=== PATIENT | female | born 1995 | race Caucasian/White ===

== ENCOUNTER 2017-12-25 11:33 | Inpatient (IN) ==
[2017-12-25] MEDS ORDERED: Ringers Solution, Lactated 1,000 ML IVC ONE (15:55)
[2017-12-25 16:28] LABS: Basophils % 0.2 %; Eosinophils % 0.4 %; Hematocrit 33.1 % (35.3-44.9); Hemoglobin 11.4 g/dL (11.5-15.4); Immature Granulocytes % 0.4 % (0-4); Lymphocytes # 2.3 K/mcL (0.6-4.6); Mean Corpuscular HGB Conc 34.4 g/dL (31.6-35.5); Mean Corpuscular Hemoglobin 27.7 pg (28.0-33.3); Mean Corpuscular Volume 80.3 fL (83.0-100.0); Mean Platelet Volume 9.5 fL (9.4-12.4); Monocytes # 0.5 K/mcL (0.0-1.3); Neutrophils # 6.8 K/mcL (1.6-8.9); Platelet Count 205 K/mcL (140-400); Red Blood Count 4.12 M/mcL (3.82-4.97); Red Cell Distribution Width 13.6 % (11.5-14.5)
[2017-12-25 16:58] LABS: BUN/Creatinine Ratio 11 (6-26); Blood Urea Nitrogen 6 mg/dL (6-20); Calcium 9.1 mg/dL (8.6-10.3); Carbon Dioxide 23 mEq/L (23-29); Chloride 107 mEq/L (98-107); Glucose 81 mg/dL (70-105); Osmolality,Calculated 281 (280-300); Potassium 3.7 mEq/L (3.5-5.1); Sodium 137 mEq/L (136-145); eGFR For Non-African Americans > 60 (> 60)
[2017-12-25] MEDS: D5% in Lactated Ringers 1,000 ML IVC SCH (17:31)
[2017-12-25] MEDS: Ondansetron 4 MG/2 ML VIAL IVP PRN (19:39)
--- NOTE | 2017-12-25 20:06 | OB/GYN History & Physical ---
Date of Encounter: 12/25/17 Time of Encounter: 20:03 Assessment and Plan (1) Hyperemesis gravidarum Current visit: Yes Status: Acute Patient with nausea and vomiting dehydration 7 pound weight loss with syncopal episodes. She is required multiple hospitalizations and having very difficult time working. She is failed oral on transdermal as well as sublingual antiemetics. We will admit for IV hydration and check electrolytes. We will consult home health for potential Zofran or Reglan pump. We will advance diet as tolerated (2) 18 weeks gestation of Current visit: Yes Status: Acute History of Present Illness Chief complaint: Nausea and vomiting dehydration at 18 weeks 4 days gestation HPI: Ms. Muñoz is a 22 year old female 2 para 0 female at 18 weeks 4 days gestation seen in office today with severe nausea and vomiting and weakness. She is very worried and tearful because she feels so bad and states she is just miserable was not able to keep any solids or liquids down several days. She is also worried because she works at [employer] on the [employer] and is having difficulty with overheating where the temperatures often get 100 degrees and she cannot take a break without the line coming to a halt. 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 She has been tried on Diclegis components, Reglan, Phenergan, Zofran, and scopolamine patches. She tried bland diet clear liquids all without avail. She denies right upper quadrant pain fevers or chills. Past Med Surg Social Fam HX - Past Medical History Source: patient, old records reviewed Medical history: no medical history Psychiatric history: no psych history - Past Surgical History Surgical History: non-contributory, other Additional surgical history: ear surgery - Social History Smoking Status: Never smoker Smokeless Tobacco Status: No Alcohol use: none Drug use: none - Family History Mother Living Status: Still Living Medications and Allergies Doxylamine Succinate [Unisom] 25 mg PO DAILY PRN #10 tablet 10/30/17 [Rx] Famotidine [Pepcid] 20 mg PO BID PRN #20 tablet 10/30/17 [Rx] Nitrofurantoin (BID) [Macrobid] 100 mg PO BID #14 capsule 10/30/17 [Rx] Pyridoxine (B-6) [Vitamin B-6] 50 mg PO DAILY PRN #10 tablet 10/30/17 [Rx] Cephalexin [Keflex] 500 mg PO BID #14 capsule 12/09/17 [Rx] Promethazine [Phenergan] 12.5 mg RC Q6HR PRN #12 supp.rect 12/18/17 [Rx] 3 Allergy/AdvReac Type Severity Reaction Status Date / Time diphenhydramine Allergy Swelling Verified 12/09/17 13:48 [From Benadryl] of Lip/Tongue/Throat Exam - Vital Signs Vital signs: Initial Vital Signs Temp Pulse Resp BP Pulse Ox 98.1 F 70 20 123/69 98 12/25/17 12:04 12/25/17 12:04 12/25/17 12:04 12/25/17 12:04 12/25/17 12:04 - Constitutional Constitutional: well developed, mild distress, dusky - HEENT HEENT: Pallor, Mucus Membranes Dry - Neck Neck exam: full ROM - Lungs Respiratory exam: CTAB - Cardiovascular Cardiovascular exam: RRR - Abdomen Abdomen: Present: gravid - Extremities Extremities exam: full ROM Deep Tendon Reflex Grade: 2+ Normal Results Result Diagrams: 12/25/17 16:16 12/25/17 16:16 Abnormal lab results Hgb 11.4 g/dL (11.5-15.4) L 12/25/17 16:16 Hct 33.1 % (35.3-44.9) L 12/25/17 16:16 MCV 80.3 fL (83.0-100.0) L 12/25/17 16:16 MCH 27.7 pg (28.0-33.3) L 12/25/17 16:16 Creatinine 0.53 mg/dL (0.60-1.20) L 12/25/17 16:16 All other labs normal.
[2017-12-26] MEDS: D5% in Lactated Ringers 1,000 ML IVC SCH ×2 (00:13→06:51)
[2017-12-26] MEDS: Ondansetron 4 MG/2 ML VIAL IVP PRN (01:34)
[2017-12-26] MEDS: *HR* Promethazine 25 MG/ML VIAL IVP PRN ×2 (06:57→22:34)
[2017-12-26] MEDS: PYRIDOXINE IVPB SCH ×2 (10:06→14:10)
[2017-12-26] MEDS: [UNRECOGNIZED DRUG - OTHER] IVPB SCH ×2 (10:06→14:10)
[2017-12-26] MEDS: THIAMINE IVPB SCH ×2 (10:06→14:10)
[2017-12-26] MEDS: FOLIC ACID IVPB SCH ×2 (10:06→14:10)
--- NOTE | 2017-12-26 10:55 | OB/GYN Progress Note ---
Date of Encounter: 12/26/17 Time of Encounter: 10:53 - Assessment and Plan (1) 18 weeks gestation of Current Visit: Yes Status: Acute (2) Hyperemesis gravidarum Current Visit: Yes Status: Acute Scopalamine patch ordered Awaiting labs to be drawn Continue meds as ordered Anticipate discharge home tomorrow. Subjective - Subjective Principal diagnosis: hyperemesis during Interval history: Pt reports mild improvement in symptoms. Requesting scopalamine patch and states she gets the most relief from reglan and scopalamine. States it will be another 24-48 hours until her insurance approves zofran pump. Antepartum ROS: movement normal, no new complaints, no loss of fluid, no vaginal bleeding, no contractions Objective - Vital Signs Vital Signs: Vital Signs Temp Pulse Resp BP Pulse Ox 12/26/17 01:35 98.2 F 62 16 107/75 100 12/25/17 21:00 98.9 F 76 16 108/69 97 12/25/17 17:52 98.4 F 67 18 98/62 96 12/25/17 13:52 98.4 F 65 18 100/62 96 12/25/17 12:04 98.1 F 70 20 123/69 98 Intake and Output 12/25/17 12/26/17 12/26/17 23:59 07:59 15:59 Intake Total 1135 / 1135 1999 Output Total 315 / 315 250 / 250 Balance 820 / 820 1750 / 1750 Intake: IV Fluids 1000 / 1000 1999 / 1999 D5% & Lact. Ringers 1000 Ml Bag 1999 1,000 ML @ 150 mls/hr IVC . Q6H40M BORIS Rx#:[id number] Lactated Ringers 1,000 ML @ 999 1000 / 1000 mls/hr IVC .Q1H1M ONE Rx#: [id number] Oral 135 / 135 Output: Urine 300 / 300 250 / 250 Emesis Other: Meal Dinner Weight 106.458 kg Patient Weight 12/26/17 23:59 Weight 106.458 kg - Exam FHR: auscultation normal Auscultation: bilateral: normal Abdomen: Present: normal appearance, soft, gravid Uterus: Present: normal, firm - Labs Labs: Abnormal lab results Hgb 11.4 g/dL (11.5-15.4) L 12/25/17 16:16 Hct 33.1 % (35.3-44.9) L 12/25/17 16:16 MCV 80.3 fL (83.0-100.0) L 12/25/17 16:16 MCH 27.7 pg (28.0-33.3) L 12/25/17 16:16 Creatinine 0.53 mg/dL (0.60-1.20) L 12/25/17 16:16
[2017-12-26] MEDS ORDERED: Scopolamine Patch 1.5 MG PATCH.TD72 TD SCH (11:00)
[2017-12-26 12:15] LABS: BUN/Creatinine Ratio 7 (6-26); Blood Urea Nitrogen 4 mg/dL (6-20); Calcium 8.9 mg/dL (8.6-10.3); Carbon Dioxide 24 mEq/L (23-29); Chloride 108 mEq/L (98-107); Glucose 80 mg/dL (70-105); Osmolality,Calculated 282 (280-300); Potassium 3.7 mEq/L (3.5-5.1); Sodium 138 mEq/L (136-145); eGFR For Non-African Americans > 60 (> 60)
[2017-12-26 14:23] LABS: Bilirubin,Urine Negative (Negative); Blood,Urine Negative (Negative); Clarity,Urine Cloudy (Clear); Color,Urine Yellow (Yellow); Glucose,Urine (UA) Normal (Normal); Ketones,Urine Negative (Negative); Leukocyte Esterase,Urine Negative (Negative); Nitrite,Urine Negative (Negative); Protein,Urine Negative (Neg-Trace); Specific Gravity,Urine 1.021 (1.010-1.025); Urobilinogen,Urine Normal (Normal)
[2017-12-26 14:27] LABS: Bacteria,Urine None Seen per hpf (None-Few); Hyaline Casts,Urine None Seen per lpf (None-Few); RBC,Urine 0-3 per hpf (0-3); Squamous Epithelial Cell,Urine Moderate per lpf (None-Few); WBC,Urine 0-3 per hpf (0-3)
[2017-12-26] MEDS: D5% in 0.45% NACL w KCl 20 MEQ/1,000 ML MLS IVC SCH (20:48)
[2017-12-27] MEDS: D5% in 0.45% NACL w KCl 20 MEQ/1,000 ML MLS IVC SCH (03:34)
--- NOTE | 2017-12-27 08:51 | Discharge Summary ---
Date of Encounter: 12/27/17 Time of Encounter: 08:55 - Discharge Diagnosis (1) Hyperemesis gravidarum Priority: Primary Status: Acute Comments: Pt improving but still with decreased PO intake. Reglan before meals with breakthrough phenergan seems to be helping. Encouraged pt in watching diet and increasing Pyridoxine to TID. Home SQ pump being arranged and they have been in contact with [facility]. (2) 18 weeks gestation of Priority: Primary Status: Acute Comments: + FHT's - Discharge Medications Prescriptions: Promethazine [Phenergan] 25 mg RC Q6HR PRN #40 supp.rect PRN Reason: nausea and emesis Home Medications: Doxylamine Succinate [Unisom] 25 mg PO DAILY PRN #10 tablet 10/30/17 [Rx] Famotidine [Pepcid] 20 mg PO BID PRN #20 tablet 10/30/17 [Rx] Nitrofurantoin (BID) [Macrobid] 100 mg PO BID #14 capsule 10/30/17 [Rx] Pyridoxine (B-6) [Vitamin B-6] 50 mg PO DAILY PRN #10 tablet 10/30/17 [Rx] Cephalexin [Keflex] 500 mg PO BID #14 capsule 12/09/17 [Rx] Promethazine [Phenergan] 12.5 mg RC Q6HR PRN #12 supp.rect 12/18/17 [Rx] Promethazine [Phenergan] 25 mg RC Q6HR PRN #40 supp.rect 12/27/17 [Rx] Allergies/Adverse Reactions: 3 Allergy/AdvReac Type Severity Reaction Status Date / Time diphenhydramine Allergy Swelling Verified 12/09/17 13:48 [From Benadryl] of Lip/Tongue/Throat Data Procedures and tests throughout hospitalization: Laboratory Tests 12/25/17 12/25/17 12/26/17 16:16 16:16 11:12 WBC 9.8 RBC 4.12 Hgb 11.4 L Hct 33.1 L MCV 80.3 L MCH 27.7 L MCHC 34.4 RDW 13.6 Plt Count 205 MPV 9.5 Immature Gran % 0.4 Seg Neutrophils % 70.0 Lymphocytes % 24.0 Monocytes % 5.0 Eosinophils % 0.4 Basophils % 0.2 Neutrophils # 6.8 Lymphocytes # 2.3 Monocytes # 0.5 Eosinophils # 0.0 Basophils # 0.0 Sodium 137 138 Potassium 3.7 3.7 Chloride 107 108 H Carbon Dioxide 23 24 BUN 6 4 L Creatinine 0.53 L 0.60 Est GFR ( Amer) > 60 > 60 Est GFR (Non-Af Amer) > 60 > 60 BUN/Creatinine Ratio 11 7 Glucose 81 80 Calculated Osmolality 281 282 Calcium 9.1 8.9 Beta-Hydroxybutyric Acd Urine Color Urine Clarity Urine pH Ur Specific [place] Urine Protein Urine Glucose (UA) Urine Ketones Urine Blood Urine Nitrite Urine Bilirubin Urine Urobilinogen Ur Leukocyte Esterase Urine Microscopic RBC Urine Microscopic WBC Ur Squamous Epith Cells Urine Bacteria Hyaline Casts Ur Culture Indicated? 12/26/17 12/26/17 11:12 11:20 WBC RBC Hgb Hct MCV MCH MCHC RDW Plt Count MPV Immature Gran % Seg Neutrophils % Lymphocytes % Monocytes % Eosinophils % Basophils % Neutrophils # Lymphocytes # Monocytes # Eosinophils # Basophils # Sodium Potassium Chloride Carbon Dioxide BUN Creatinine Est GFR ( Amer) Est GFR (Non-Af Amer) BUN/Creatinine Ratio Glucose Calculated Osmolality Calcium Beta-Hydroxybutyric Acd 0.29 H Urine Color Yellow Urine Clarity Cloudy A Urine pH 8.0 Ur Specific [place] 1.021 Urine Protein Negative Urine Glucose (UA) Normal Urine Ketones Negative Urine Blood Negative Urine Nitrite Negative Urine Bilirubin Negative Urine Urobilinogen Normal Ur Leukocyte Esterase Negative Urine Microscopic RBC 0-3 Urine Microscopic WBC 0-3 Ur Squamous Epith Cells Moderate H Urine Bacteria None Seen Hyaline Casts None Seen Ur Culture Indicated? NO Labs on day of discharge: Labs from last 24 hours 12/26/17 12/26/17 12/26/17 11:20 11:12 11:12 Sodium 138 Potassium 3.7 Chloride 108 H Carbon Dioxide 24 BUN 4 L Creatinine 0.60 Est GFR ( Amer) > 60 Est GFR (Non-Af Amer) > 60 BUN/Creatinine Ratio 7 Glucose 80 Calculated Osmolality 282 Calcium 8.9 Beta-Hydroxybutyric Acd 0.29 H Urine Color Yellow Urine Clarity Cloudy A Urine pH 8.0 Ur Specific [place] 1.021 Urine Protein Negative Urine Glucose (UA) Normal Urine Ketones Negative Urine Blood Negative Urine Nitrite Negative Urine Bilirubin Negative Urine Urobilinogen Normal Ur Leukocyte Esterase Negative Urine Microscopic RBC 0-3 Urine Microscopic WBC 0-3 Ur Squamous Epith Cells Moderate H Urine Bacteria None Seen Hyaline Casts None Seen Ur Culture Indicated? NO - Impressions Pt states she feels better, taking more po intake. Ambulating. Date of admission: 12/26/17 09:00 Primary care physician: PCP NONE - Patient Status Disposition: Home, Self-Care Condition: Good Functional capacity at discharge: independent ambulation Overall status at discharge: patient is progressing back to baseline - Discharge Instructions Follow Up With: Denver Lindsey MD [Partnered Physician] - Additional Instructions: Should not return to work at this time secondary to severe n/v related to with weight loss, weakness and syncope. It is not self for her to work at this time. - Diet and Activity Activity: increase activity as tolerated Diet: advance to your usual diet Hospital Course INSURANCE SALES PROFESSIONAL Time Attestation: Total time spent providing and/or coordinating discharge services: Exam - Constitutional Vitals: Temp Pulse Resp BP Pulse Ox 98.4 F 64 20 99/53 96 12/27/17 03:35 12/27/17 03:35 12/27/17 03:35 12/27/17 03:35 12/27/17 03:35 General appearance IM: A&O X 3 - Respiratory Respiratory exam: Present: CTAB - Cardiovascular Cardiovascular exam IM: Present: RRR - GI/Abdominal GI/Abdominal exam IM: normal bowel sounds, no peritoneal signs - Extremities Exam Extremities exam IM: Present: full ROM - Neurological Exam Neurological exam: oriented X3 - VTE Reasons for not Prescribing Prophylaxis: Treatment not Indicated - Low risk for VTE
[2017-12-27 09:08] VITALS: BP 119/78
== END 2017-12-27 09:15 | disposition home or self-care (01) | DRG 781 ==
LOC: 1NENUOBS
PROVIDERS: ADMIT Obstetrics & Gynecology; ATTEND Obstetrics & Gynecology

== ENCOUNTER 2018-01-04 11:04 | Observation (INO) ==
--- NOTE | 2018-01-04 11:27 | Emergency Department Note ---
Disposition Clinical Impression: Dehydration Intractable nausea and vomiting Qualifiers: Vomiting type: unspecified Qualified Code(s): R11.2 - Nausea with vomiting, unspecified Disposition: Admitted As Inpatient Condition: Fair Time of Disposition: 13:30 Nausea/Vomiting/Diarrhea HPI - General Chief complaint: ED Nausea/Vomiting/Diarrhea Stated complaint: "vomiting/dehydrated,20wks preg" Time Seen by Provider: 01/04/18 11:19 Source: patient Mode of arrival: ambulatory Limitations: no limitations Nursing Notes Reviewed: Yes Vital Signs Reviewed: Yes - History of Present Illness HPI Narrative: Patient is a 22-year-old female with no past medical history, . Approximately 20 weeks . She presents today due to nausea and vomiting. She states that she has had nausea and vomiting since around 8 weeks of . She follows with [facility] DIRECT[facility] here at [place] for care. She says that over the past several weeks, she has tried Zofran, Phenergan, Reglan, scopolamine patch. She even had Zofran pump prescribed to her that she has tried within the past 24 hours. She states that after 12 hours, the pump malfunction. However, she denied having any relief while the pump was running with continuous Zofran infusion. Denies any abdominal pain or contractions, denies any vaginal bleeding or discharge, dysuria, hematuria. She has had some mild low back pain that started after vomiting. Denies any current issues with such as hypertension, diabetes, eclampsia, preeclampsia. - Related Data Home Medications Medication Instructions Recorded Confirmed Metoclopramide [Reglan] 10 mg PO Q6HR 01/04/18 01/04/18 Allergies Allergy/AdvReac Type Severity Reaction Status Date / Time diphenhydramine Allergy Swelling Verified 12/09/17 13:48 [From Benadryl] of Lip/Tongue/Throat All systems ED: reviewed and negative except as stated. Constitutional: Denies: fever Cardiovascular: Denies: chest pain Respiratory: Denies: cough, dyspnea, wheezes Gastrointestinal: Reports: nausea, vomiting. Denies: abdominal pain, diarrhea, constipation, hematemesis, melena, hematochezia Genitourinary: Denies: urgency, dysuria, frequency, hematuria, discharge, abnormal menses Neurological: Denies: headache, weakness, numbness Past Medical History - Past Medical History Attestation: Yes The following information was validated with the patient. Source: patient Medical history: Reports: no medical history Surgical history: Reports: non-contributory, other Psychiatric history: Reports: no psych history [facility]PORATE ACCOUNT DIRECTOR history: Reports: spontaneous - Social History Smoking Status: Never smoker Smokeless Tobacco Status: No Alcohol use: Reports: none Drug use: Reports: none Physical Exam - General Limitations: no limitations General appearance: alert, in no apparent distress - Head Head exam: atraumatic, normocephalic, normal inspection - Eye Eye exam: Present: normal appearance, PERRL, EOMI - ENT ENT exam: normal oropharynx, mucous membranes dry - Neck Neck exam: Present: normal inspection, full ROM, trachea midline - Chest Chest inspection: Present: normal inspection, symmetric chest wall rise - Respiratory Respiratory exam: Present: normal lung sounds bilaterally - Cardiovascular Cardiovascular exam: Present: regular rate, normal rhythm, normal heart sounds - Abdominal Exam Abdominal exam: Present: soft, Non-Tender, other (Gravid). Absent: tenderness, distention, guarding, rebound, rigidity - Extremities Exam Extremities exam: Present: normal inspection, full ROM. Absent: tenderness, pedal edema - Neurological Exam Neurological exam: Present: alert, oriented X3 - Psychiatric Psychiatric exam: Present: normal affect, normal mood - Skin Skin exam: Present: warm, dry, intact, normal color Course Course Narrative: Patient is clinically dehydrated. Dry mucous membranes, lips are dry and cracked. Heart and lung exam within normal limits. Abdomen gravid, soft, nontender. We will obtain heart tones, give the patient normal saline bolus, Reglan, perform basic labs. If nausea and vomiting is unable to be controlled here in the department, we will admit for further care. 13:28 labs showed no increase in creatinine. However, urinalysis shows ketones , high specific gravity. No signs of UTI. Patient is given normal saline and Reglan. No improvement in her nausea and vomiting. I spoke with OB, aircraft mechanic armament Stacie. She has accepted the patient for dehydration and intractable nausea and vomiting. Vital Signs Temperature 98.3 F 01/04/18 11:14 Pulse Rate 85 01/04/18 11:14 Respiratory Rate 16 01/04/18 11:14 Blood Pressure 110/75 01/04/18 11:14 O2 Sat by Pulse Oximetry 97 01/04/18 11:14 Temperature 98.3 F 01/04/18 11:27 Pulse Rate 74 01/04/18 12:40 Respiratory Rate 16 01/04/18 12:40 Blood Pressure 113/56 01/04/18 12:40 O2 Sat by Pulse Oximetry 97 01/04/18 12:40 Oxygen Delivery Oxygen Delivery Room Air Nausea/Vomiting/Diarrhea - [facility] Narrative Medical decision making narrative: Patient is clinically dehydrated. Dry mucous membranes, lips are dry and cracked. Heart and lung exam within normal limits. Abdomen gravid, soft, nontender. We will obtain heart tones, give the patient normal saline bolus, Reglan, perform basic labs. If nausea and vomiting is unable to be controlled here in the department, we will admit for further care. 13:28 labs showed no increase in creatinine. However, urinalysis shows ketones , high specific gravity. No signs of UTI. Patient is given normal saline and Reglan. No improvement in her nausea and vomiting. I spoke with OB, aircraft mechanic armament Stacie. She has accepted the patient for dehydration and intractable nausea and vomiting. - Medical Records Medical records reviewed: Yes I reviewed the patient's medical records. - Lab Data Lab results reviewed: Yes I reviewed the patient's lab results. Result diagrams: 01/04/18 11:54 01/04/18 11:54 Lab Results 01/04/18 01/04/18 01/04/18 Range/Units 11:54 11:54 12:03 WBC 10.1 (4.3-11.1) K/mcL RBC 4.41 (3.82-4.97) M/mcL Hgb 12.4 (11.5-15.4) g/dL Hct 36.4 (35.3-44.9) % MCV 82.5 L (83.0-100.0) fL MCH 28.1 (28.0-33.3) pg MCHC 34.1 (31.6-35.5) g/dL RDW 13.6 (11.5-14.5) % Plt Count 217 (140-400) K/mcL MPV 10.6 (9.4-12.4) fL Immature Gran % 0.5 (0-4) % Seg Neutrophils % 74.5 % Lymphocytes % 19.9 % Monocytes % 4.4 % Eosinophils % 0.4 % Basophils % 0.3 % Neutrophils # 7.5 (1.6-8.9) K/mcL Lymphocytes # 2.0 (0.6-4.6) K/mcL Monocytes # 0.4 (0.0-1.3) K/mcL Eosinophils # 0.0 (0.0-0.6) K/mcL Basophils # 0.0 (0.0-0.2) K/mcL Sodium 137 (136-145) mEq/L Potassium 4.3 (3.5-5.1) mEq/L Chloride 106 (98-107) mEq/L Carbon Dioxide 22 L (23-29) mEq/L BUN 7 (6-20) mg/dL Creatinine 0.69 (0.60-1.20) mg/dL Est GFR ( Amer) > 60 (> 60) Est GFR (Non-Af Amer) > 60 (> 60) BUN/Creatinine Ratio 10 (6-26) Glucose 84 (70-105) mg/dL Calculated Osmolality 281 (280-300) Calcium 9.4 (8.6-10.3) mg/dL Urine Color Dark Yellow (Yellow) Urine Clarity Cloudy A (Clear) Urine pH 5.5 (5.0-8.0) pH Units Ur Specific [place] > 1.030 H (1.010-1.025) Urine Protein Trace (Neg-Trace) mg/dL Urine Glucose (UA) Normal (Normal) mg/dL Urine Ketones 15 H (Negative) mg/dL Urine Blood Negative (Negative) Urine Nitrite Negative (Negative) Urine Bilirubin Negative (Negative) Urine Urobilinogen Normal (Normal) mg/dL Ur Leukocyte Esterase Small H (Negative) Urine Microscopic RBC 3-5 H (0-3) per hpf Urine Microscopic WBC 15-30 H (0-3) per hpf Ur Squamous Epith Cells Moderate H (None-Few) per lpf Urine Bacteria Few (None-Few) per hpf Hyaline Casts None Seen (None-Few) per lpf Ur Culture Indicated? YES A (NO) S.B.A.R. - S.B.A.R. Situation: Demographics, MOA Background: Presenting Complaint, Relevant PMH, Meds, & Allergies Assessment: Vital Signs, Course and respsone to treatment, Exam Concerns, Patient/Family Expectation, Pertinant Lab Results Recommendation: Barrier(s) to disposition, Recommendation based on pending studies, treatments, or consults SCristyB.A.R. Report Given to: Route Vending Machine Servicer Dr. Cassandra Luis Attestation Statement - Attestation Attestation: This documentation is done with the assistance of Dragon dictation. Despite efforts made to ensure accuracy, there may be inaccuracies in naval aircrewman operator or spelling and typographical errors. I examined this patient and my medical decision-making was reviewed with the Resident Physician. I agree with the documented findings, disposition and treatment plan as described except to the extent set forth below. Patient was seen and evaluated by Dr. Woo and myself, I agree with his evaluation and treatment plan, I supervised the care the patient's stay. Patient presents today with nausea and vomiting she has had chronic hyperemesis due to . She is on multiple medications and they do not seem to work really well. They are 1 admit her to the hospital through [facility]POR[facility] ACCOUNT DIRECTOR but she was can try a ondansetron pump first and that did not work. Now she presents she does look dry here. Will order labs hydration and anti-emetics do an ultrasound at bedside to make sure with good heart tones and and movement with the child and speak with HEALTHCARE CORPORATE ACCOUNT DIRECTOR for probable admission. She is in agreement with this plan. 1343 hrs.: Patient is doing better. We spoke with HEALTHCARE CORPORATE ACCOUNT DIRECTOR they are in agreement and admit her. Impressions hyperemesis gravidarum. 20 weeks . Patient 's agreement with this plan. We did bedside also showed heart tones 160s.
[2018-01-04] MEDS ORDERED: 0.9 % Sodium Chloride 1,000 ML IVC ONE (11:45)
[2018-01-04] MEDS ORDERED: Metoclopramide 10 MG/2 ML VIAL IVP ONE (11:45)
[2018-01-04 12:25] LABS: Hematocrit 36.4 % (35.3-44.9); Hemoglobin 12.4 g/dL (11.5-15.4); Mean Corpuscular HGB Conc 34.1 g/dL (31.6-35.5); Mean Corpuscular Hemoglobin 28.1 pg (28.0-33.3); Mean Corpuscular Volume 82.5 fL (83.0-100.0); Platelet Count 217 K/mcL (140-400); Red Blood Count 4.41 M/mcL (3.82-4.97); Red Cell Distribution Width 13.6 % (11.5-14.5)
[2018-01-04 12:26] LABS: Basophils % 0.3 %; Eosinophils % 0.4 %; Immature Granulocytes % 0.5 % (0-4); Lymphocytes % 19.9 %; Mean Platelet Volume 10.6 fL (9.4-12.4); Monocytes # 0.4 K/mcL (0.0-1.3); Monocytes % 4.4 %; Neutrophils # 7.5 K/mcL (1.6-8.9); Segmented Neutrophils % 74.5 %
[2018-01-04 12:31] LABS: Bilirubin,Urine Negative (Negative); Blood,Urine Negative (Negative); Clarity,Urine Cloudy (Clear); Color,Urine Dark Yellow (Yellow); Glucose,Urine (UA) Normal (Normal); Ketones,Urine 15 mg/dL (Negative); Leukocyte Esterase,Urine Small (Negative); Nitrite,Urine Negative (Negative); PH,Urine 5.5 pH Units (5.0-8.0); Protein,Urine Trace mg/dL (Neg-Trace); Specific Gravity,Urine > 1.030 (1.010-1.025); Urobilinogen,Urine Normal (Normal)
[2018-01-04 12:33] LABS: Bacteria,Urine Few per hpf (None-Few); Hyaline Casts,Urine None Seen per lpf (None-Few); Squamous Epithelial Cell,Urine Moderate per lpf (None-Few); WBC,Urine 15-30 per hpf (0-3)
[2018-01-04 12:59] LABS: BUN/Creatinine Ratio 10 (6-26); Blood Urea Nitrogen 7 mg/dL (6-20); Calcium 9.4 mg/dL (8.6-10.3); Carbon Dioxide 22 mEq/L (23-29); Chloride 106 mEq/L (98-107); Glucose 84 mg/dL (70-105); Osmolality,Calculated 281 (280-300); Potassium 4.3 mEq/L (3.5-5.1); Sodium 137 mEq/L (136-145); eGFR For Non-African Americans > 60 (> 60)
[2018-01-04] MEDS ORDERED: *HR* Promethazine 25 MG/ML VIAL IVP PRN (13:57)
[2018-01-04] MEDS ORDERED: 1: Ringers Solution, Lactated 1,000 ML with Promethazine 50 MG 2: Ringers Solution, Lac IV SCH (14:00)
[2018-01-04] MEDS ORDERED: Ringers Solution, Lactated 1,000 ML ONE (14:09)
[2018-01-04] MEDS ORDERED: Scopolamine Patch 1.5 MG PATCH.TD72 TD SCH (14:15)
[2018-01-04] MEDS: Metoclopramide 10 MG/2 ML VIAL IVP SCH ×2 (14:28→20:44)
--- NOTE | 2018-01-04 14:31 | OB/GYN History & Physical ---
Date of Encounter: 01/04/18 Time of Encounter: 14:27 Assessment and Plan (1) Dehydration Current visit: Yes Status: Acute Rehydrate with IV fluids MVI, Phenergan, B-6 IV infusions Phenergan, Zofran, Reglan, Zantac, and scopolamine patch NPO until at least morning, will reevaluate at that time FHTs daily H.Pylori Testing (2) 20 weeks gestation of Current visit: Yes Status: Acute (3) Nausea and vomiting during prior to 22 weeks gestation Current visit: Yes Status: Acute History of Present Illness Chief complaint: Nausea and vomiting during HPI: Ms. Muñoz is a 22 year old at 20 weeks and 0 days that presented to the ED with c/o increased nausea and vomiting for greater than 24 hours. She states her zofran pump stopped working Thursday afternoon and she had been attempting to fix it with the help desk at the company that provided it to her without relief. She states she was also told to stop all oral antiemetics which she believes made her nausea worse. She states she has not been able to keep anything down for greater than 24 hours. She is seen for this by Dr Lindsey and has had no problems with this prior to hyperemesis. I admitted her to observation this afternoon for rehydration and nausea/vomiting control. Past Med Surg Social Fam HX - Past Medical History Medical history: no medical history Psychiatric history: no psych history - Past Surgical History Surgical History: non-contributory, other Additional surgical history: ear surgery - Social History Smoking Status: Never smoker Smokeless Tobacco Status: No Alcohol use: none Drug use: none - Family History Mother Living Status: Still Living Obstetrical History - Pregnancies : 1 Para: 0 Term: 0 : 0 Ab's: 0 Livin Medications and Allergies Metoclopramide [Reglan] 10 mg PO Q6HR 01/04/18 [History] 3 Allergy/AdvReac Type Severity Reaction Status Date / Time diphenhydramine Allergy Swelling Verified 12/09/17 13:48 [From Benadryl] of Lip/Tongue/Throat Review of System OB All systems PM: reviewed and no additional remarkable complaints except as stated Exam - Vital Signs Vital signs: Initial Vital Signs Temp Pulse Resp BP Pulse Ox 98.3 F 85 16 110/75 97 01/04/18 11:14 08/13/18 11:14 01/04/18 11:14 01/04/18 11:14 01/04/18 11:14 - Constitutional Constitutional: well developed, well nourished, no acute distress, obese - HEENT HEENT: Normocephaly, Mucus Membranes Dry - Neck Neck exam: full ROM - Lungs Respiratory exam: CTAB - Cardiovascular Cardiovascular exam: RRR, +S1, +S2 - Abdomen Abdomen: Present: bowel sounds normal, gravid, non tender - Extremities Extremities exam: normal capillary refill, normal inspection, radial pulses palpable and symmetrical Deep Tendon Reflex Grade: 2+ Normal - Uterus Uterus exam: Present: normal size, normal contour. Absent: tender Results Result Diagrams: 01/04/18 11:54 01/04/18 11:54 Abnormal lab results MCV 82.5 fL (83.0-100.0) L 01/04/18 11:54 Carbon Dioxide 22 mEq/L (23-29) L 01/04/18 11:54 Urine Clarity Cloudy (Clear) A 01/04/18 12:03 Ur Specific [place] > 1.030 (1.010-1.025) H 01/04/18 12:03 Urine Ketones 15 mg/dL (Negative) H 01/04/18 12:03 Ur Leukocyte Esterase Small (Negative) H 01/04/18 12:03 Urine Microscopic RBC 3-5 per hpf (0-3) H 01/04/18 12:03 Urine Microscopic WBC 15-30 per hpf (0-3) H 01/04/18 12:03 Ur Squamous Epith Cells Moderate per lpf (None-Few) H 01/04/18 12:03 Ur Culture Indicated? YES (NO) A 01/04/18 12:03 All other labs normal. - VTE Reasons for not Prescribing Prophylaxis: Treatment not Indicated - Low risk for VTE
[2018-01-04] MEDS ORDERED: Promethazine 50 MG in Ringers Solution, Lactated 1,000 ML IV SCH (16:00)
[2018-01-04] MEDS: Famotidine 20 MG/2 ML VIAL IVP SCH (18:07)
[2018-01-04] MEDS: Ondansetron 4 MG/2 ML VIAL IVP SCH (18:07)
[2018-01-05] MEDS ORDERED: Pyridoxine (B-6) 50 MG in Ringers Solution, Lactated 1,000 ML IVPB SCH
[2018-01-05] MEDS: Ondansetron 4 MG/2 ML VIAL IVP SCH ×4 (00:28→18:22)
[2018-01-05] MEDS: Metoclopramide 10 MG/2 ML VIAL IVP SCH ×3 (02:57→14:58)
[2018-01-05] MEDS: Famotidine 20 MG/2 ML VIAL IVP SCH ×2 (06:01→18:23)
[2018-01-05] MEDS ORDERED: MVI, adult with vitamin K 10 ML in Ringers Solution, Lactated 1,000 ML IV SCH (08:00)
[2018-01-05 08:45] VITALS: BP 112/77
[2018-01-05] MEDS ORDERED: Hydrocortisone Sodium Succ 100 MG/2 ML VIAL IVP SCH ×2 (10:00→18:00)
--- NOTE | 2018-01-05 19:00 | Discharge Summary ---
Date of Encounter: 01/05/18 Time of Encounter: 19:00 - Discharge Diagnosis (1) 20 weeks gestation of Priority: Primary Status: Acute Comments: + GFM, no vb or lof (2) Hyperemesis gravidarum Priority: Secondary Status: Acute Comments: Pt is doing a little bit better today. Zofran pump should be available tomorrow and worked again on prior auth of Scopolamine patches. Pt taking a little more food, will d/c home. - Discharge Medications Home Medications: Metoclopramide [Reglan] 10 mg PO Q6HR 01/04/18 [History] Allergies/Adverse Reactions: 3 Allergy/AdvReac Type Severity Reaction Status Date / Time diphenhydramine Allergy Swelling Verified 12/09/17 13:48 [From Benadryl] of Lip/Tongue/Throat Data - Impressions Doing a little better throughout today, now taking a little more dry foods. Still alot of nausea, less emesis. Date of admission: 01/04/18 13:30 Primary care physician: Niranjan Trinidad MD - Patient Status Disposition: Home, Self-Care Condition: Fair Functional capacity at discharge: independent ambulation Overall status at discharge: patient is progressing back to baseline - Discharge Instructions Follow Up With: Denver Lindsey MD [Partnered Physician] - - Diet and Activity Activity: increase activity as tolerated Diet: advance to your usual diet Hospital Course RIBB[employer] BLOCKER Time Attestation: Total time spent providing and/or coordinating discharge services: Exam - Constitutional Vitals: Temp Pulse Resp BP Pulse Ox 98.5 F 70 16 112/77 99 01/05/18 08:45 01/05/18 08:45 01/05/18 09:18 01/05/18 08:45 01/05/18 08:45 General appearance IM: A&O X 3 - Respiratory Respiratory exam: Present: CTAB - Cardiovascular Cardiovascular exam IM: Present: RRR - GI/Abdominal GI/Abdominal exam IM: normal bowel sounds - Uterus Position: 2 Fingers Above Umbilicus - Extremities Exam Extremities exam IM: Present: full ROM - VTE Reasons for not Prescribing Prophylaxis: Treatment not Indicated - Low risk for VTE
== END 2018-01-05 19:33 | disposition home or self-care (01) ==
LOC: 1NENUOBS 11:04 → EMEROOARM 11:04 → 1NENUOBS 14:02
PROVIDERS: ADMIT Advanced Practice Midwife; ATTEND Advanced Practice Midwife

== ENCOUNTER → 2018-02-25 17:02 | Observation (INO) ==
[2018-02-25 11:28] LABS: Basophils % 0.3 %; Eosinophils # 0.2 K/mcL (0.0-0.6); Eosinophils % 1.1 %; Hematocrit 33.2 % (35.3-44.9); Hemoglobin 10.9 g/dL (11.5-15.4); Lymphocytes % 14.4 %; Mean Corpuscular HGB Conc 32.8 g/dL (31.6-35.5); Mean Corpuscular Volume 82.2 fL (83.0-100.0); Mean Platelet Volume 9.7 fL (9.4-12.4); Monocytes # 0.6 K/mcL (0.0-1.3); Monocytes % 4.1 %; Neutrophils # 11.2 K/mcL (1.6-8.9); Platelet Count 251 K/mcL (140-400); Red Blood Count 4.04 M/mcL (3.82-4.97); Segmented Neutrophils % 79.1 %; White Blood Count 14.2 K/mcL (4.3-11.1)
[2018-02-25 11:33] LABS: Bilirubin,Urine Negative (Negative); Blood,Urine Negative (Negative); Color,Urine Yellow (Yellow); Glucose,Urine (UA) Normal (Normal); Ketones,Urine Negative (Negative); Leukocyte Esterase,Urine Negative (Negative); Nitrite,Urine Negative (Negative); PH,Urine 7.5 pH Units (5.0-8.0); Protein,Urine Negative (Neg-Trace); Specific Gravity,Urine < 1.005 (1.010-1.025); Urobilinogen,Urine Normal (Normal)
[2018-02-25 11:35] LABS: Bacteria,Urine None Seen per hpf (None-Few); Hyaline Casts,Urine None Seen per lpf (None-Few); RBC,Urine 0-3 per hpf (0-3); Squamous Epithelial Cell,Urine Moderate per lpf (None-Few)
[2018-02-25 11:43] LABS: Clarity,Urine Clear (Clear)
[2018-02-25 11:56] LABS: Amphetamine Screen,Urine Negative ng/mL (Cutoff=1000); Barbiturate Screen,Urine Negative ng/mL (Cutoff=200); Benzodiazepines Screen,Urine Negative ng/mL (Cutoff=200); Cannabinoid Screen,Urine Negative ng/mL (Cutoff = 50); Cocaine Screen,Urine Negative ng/mL (Cutoff= 300); Opiate Screen,Urine Negative ng/mL (Cutoff=300); Phencyclidine Screen,Urine Negative ng/mL (Cutoff=25)
[2018-02-25 11:59] LABS: Alanine Aminotransferase 13 Units/L (7-52); Aspartate Amino Transferase 22 Units/L (13-39); BUN/Creatinine Ratio 12 (6-26); Blood Urea Nitrogen 6 mg/dL (6-20); Lactate Dehydrogenase 159 Units/L (140-271); Uric Acid 4.6 mg/dL (2.3-7.6); eGFR For African Americans > 60 (> 60); eGFR For Non-African Americans > 60 (> 60)
[~2018-02-25 17:02] MED LIST: Bisacodyl 10 MG RECTAL SUPPOSITORY RC STA; Ringers Solution, Lactated 1,000 ML IVC ONE
== END | disposition home or self-care (01) ==
LOC: 1NENULAB
PROVIDERS: ADMIT Registered Nurse; ATTEND Registered Nurse

== ENCOUNTER → 2018-03-09 02:49 | Observation (INO) ==
[2018-03-09 02:11] LABS: Bilirubin,Urine Negative (Negative); Blood,Urine Negative (Negative); Clarity,Urine Clear (Clear); Color,Urine Yellow (Yellow); Glucose,Urine (UA) Normal (Normal); Ketones,Urine Negative (Negative); Leukocyte Esterase,Urine Trace (Negative); Nitrite,Urine Negative (Negative); PH,Urine 6.5 pH Units (5.0-8.0); Protein,Urine Negative (Neg-Trace); Specific Gravity,Urine 1.014 (1.010-1.025); Urobilinogen,Urine Normal (Normal)
[2018-03-09 02:13] LABS: Bacteria,Urine None Seen per hpf (None-Few); Hyaline Casts,Urine None Seen per lpf (None-Few); RBC,Urine 0-3 per hpf (0-3); Squamous Epithelial Cell,Urine Moderate per lpf (None-Few); WBC,Urine 0-3 per hpf (0-3)
[2018-03-09 02:46] LABS: Amphetamine Screen,Urine Negative ng/mL (Cutoff=1000); Barbiturate Screen,Urine Negative ng/mL (Cutoff=200); Benzodiazepines Screen,Urine Negative ng/mL (Cutoff=200); Cannabinoid Screen,Urine Negative ng/mL (Cutoff = 50); Cocaine Screen,Urine Negative ng/mL (Cutoff= 300); Opiate Screen,Urine Negative ng/mL (Cutoff=300); Phencyclidine Screen,Urine Negative ng/mL (Cutoff=25)
--- NOTE | 2018-03-09 02:46 | OB/GYN Progress Note ---
Date of Encounter: 03/09/18 Time of Encounter: 02:44 - Assessment and Plan (1) 29 weeks gestation of Current Visit: Yes Status: Acute tracing - appropriate for gestation Urinalysis - likely UTI; first dose Macrobid given in house, Rx given for remainder of Rx Discharge home with PTL precautions and when to seek care Follow up in office with routine care and PRN (2) Urinary tract infection affecting care of mother in third trimester, antepartum Current Visit: Yes Status: Acute Subjective - Subjective Principal diagnosis: UTI in Interval history: Ms Muñoz is a at 29 weeks gestation that presents to triage with c/o vaginal irritation and increased urinary frequency. She states she has been urinating multiple times throughout the day with suprapubic pressure. She states excellent movement. She denies headache, vision changes, epigastric pain, leaking of fluid and vaginal bleeding/discharge/cramping. She has had HG with this , but has had good control with a zofran pump. Antepartum ROS: movement normal Objective - Vital Signs Vital Signs: Intake and Output 03/08/18 03/08/18 03/09/18 15:59 23:59 07:59 Other: Weight 112.9 kg Patient Weight 03/09/18 23:59 Weight 112.9 kg - Exam FHR: auscultation normal, category 1 (Baseline 140 - appropriate for gestation) Abdomen: Present: normal appearance, soft, gravid Uterus: Present: normal. Absent: firm, tenderness - Labs Labs: Abnormal lab results Ur Leukocyte Esterase Trace (Negative) H 03/09/18 01:45 Ur Squamous Epith Cells Moderate per lpf (None-Few) H 03/09/18 01:45 Ur Culture Indicated? YES (NO) A 03/09/18 01:45
[~2018-03-09 02:49] MED LIST changes: -Bisacodyl 10 MG RECTAL SUPPOSITORY RC STA; +Nitrofurantoin (BID) 100 MG CAPSULE PO ONE; -Ringers Solution, Lactated 1,000 ML IVC ONE
== END | disposition home or self-care (01) ==
LOC: 1NENULAB
PROVIDERS: ADMIT Advanced Practice Midwife; ATTEND Advanced Practice Midwife

== ENCOUNTER 2018-05-14 08:38 | Inpatient (IN) ==
[2018-05-14] MEDS ORDERED: Naloxone 0.4 MG/ML INJ IVP PRN (09:34)
[2018-05-14] MEDS ORDERED: Famotidine 20 MG/2 ML VIAL IVP PRN (09:34)
[2018-05-14] MEDS ORDERED: *HR* Nalbuphine 10 MG/ML AMPUL IVP PRN (09:34)
--- NOTE | 2018-05-14 09:43 | OB/GYN History & Physical ---
Date of Encounter: 05/14/18 Time of Encounter: 09:37 Assessment and Plan (1) 38 weeks gestation of Current visit: Yes Status: Acute admitted for delivery (2) Spontaneous rupture of membranes Current visit: Yes Status: Acute admitted for delivery History of Present Illness Chief complaint: SROM HPI: Ms. Muñoz is a 22 year old female at 38w4d presents to labor and delivery with complaints of SROM. Patient reports after using the bathroom this morning she got back in bed she had a large gush of fluid. Patient reports feeling good movement. Patient denies any vaginal itching, burning or odor. Patient denies any dysuria. Patient does report frequency. Patient denies any Vaginal bleeding or regular contractions. Patient was 3/70% in the office today. On admission she was 4/90 per RN with Negative nitrazine however, perineum was very wet. Speculum exam per SILVERIO Ponce had + Pooling and + FERN test. Patient to be admitted for delivery. Blood type: B+ Rubella: Immune Hep B: Nonreactive GBS: Negative Past Med Surg Social Fam HX - Past Medical History Source: patient Medical history: no medical history Psychiatric history: no psych history - Past Surgical History Surgical History: other Additional surgical history: ear surgery. t&a - Social History Smoking Status: Never smoker Smokeless Tobacco Status: No Alcohol use: none Drug use: none - Family History Mother History Unknown: Yes Adopted: No Family Member Ethnicity: Non- Living Status: Still Living Hx Family Cardiac Disorders: Yes (HTN) Hx Family Respiratory Disorders: Yes (COPD) Hx Family Cancer: No Hx Family GI Disorders: No Hx Family Endocrine Disorder: Yes (DM) Hx Family Neuromuscular Disorders: No Hx Family Neurologic Disorders: No Hx Family HEENT Disorders: No Hx Family Autoimmune Disorders: No Hx Family Medical Disorders: Yes (DVT) Obstetrical History - Pregnancies : 2 Para: 0 Term: 0 : 0 Ab's: 1 Livin Medications and Allergies Metoclopramide [Reglan] 10 mg PO Q6HR 01/04/18 [History] Ranitidine HCl [Zantac 75] 150 mg PO DAILY 02/25/18 [History] Pnv95/Ferrous Fumarate/FA [ Vitamin Tablet] 1 tab PO DAILY 05/01/18 [History] Zofran 12/08/18 [History] Allergy/AdvReac Type Severity Reaction Status Date / Time cefpodoxime [From Vantin] Allergy See Verified 05/01/18 14:09 Comments Cefprozil [From Cefzil] Allergy See Verified 05/01/18 14:09 Comments diphenhydramine Allergy Swelling Verified 12/09/17 13:48 [From Benadryl] of Lip/Tongue/Throat Review of System OB - Constitutional Constitutional ROS IM: no chills, no fever(s), no headache(s) - Cardiovascular Cardiovascular: no chest pain, no edema, no lightheadedness, no palpitations, no pedal edema - Respiratory Respiratory: no dyspnea - Gastrointestinal Gastrointestinal: no abdominal pain, no cramping, no diarrhea, no heartburn, no nausea, no vomiting Exam - Constitutional Constitutional: well developed, well nourished, no acute distress, obese - HEENT HEENT: Normocephaly, Mucus Membranes Moist - Neck Neck exam: full ROM, normal inspection, supple - Lungs Respiratory exam: CTAB - Cardiovascular Cardiovascular exam: RRR, +S1, +S2 - Abdomen Abdomen: Present: bowel sounds normal, gravid, non tender - Extremities Extremities exam: full ROM, normal capillary refill, normal inspection Deep Tendon Reflex Grade: 2+ Normal - Cervix Dilation: 4 (per RN) Effacement: 90 - Uterus Uterus exam: Present: normal size, normal contour - Anus/Rectum Anus/Rectum: Present: normal perianal skin - Comments Comments: FHR 135 bpm moderate variability +15x15 accels no decels noted. Cat. 1 tracing. No contractions noted speculum exam: +pooling, +FERN, large amount of green mucus discharge noted. vaginosis panel collected Results All other labs normal. - VTE Reasons for not Prescribing Prophylaxis: Treatment not Indicated - Low risk for VTE
[2018-05-14 09:45] LABS: Amphetamine Screen,Urine Negative ng/mL (Cutoff=1000); Barbiturate Screen,Urine Negative ng/mL (Cutoff=200); Benzodiazepines Screen,Urine Negative ng/mL (Cutoff=200); Cannabinoid Screen,Urine Negative ng/mL (Cutoff = 50); Cocaine Screen,Urine Negative ng/mL (Cutoff= 300); Opiate Screen,Urine Negative ng/mL (Cutoff=300); Phencyclidine Screen,Urine Negative ng/mL (Cutoff=25)
[2018-05-14 09:51] LABS: Basophils # 0.1 K/mcL (0.0-0.2); Basophils % 0.5 %; Eosinophils # 0.4 K/mcL (0.0-0.6); Eosinophils % 2.9 %; Hematocrit 35.5 % (35.3-44.9); Hemoglobin 11.9 g/dL (11.5-15.4); Immature Granulocytes % 1.3 % (0-4); Lymphocytes # 2.8 K/mcL (0.6-4.6); Mean Corpuscular HGB Conc 33.5 g/dL (31.6-35.5); Mean Corpuscular Hemoglobin 26.7 pg (28.0-33.3); Mean Corpuscular Volume 79.6 fL (83.0-100.0); Mean Platelet Volume 9.8 fL (9.4-12.4); Monocytes # 1.1 K/mcL (0.0-1.3); Monocytes % 8.3 %; Neutrophils # 8.8 K/mcL (1.6-8.9); Platelet Count 239 K/mcL (140-400); Red Blood Count 4.46 M/mcL (3.82-4.97); Red Cell Distribution Width 13.8 % (11.5-14.5)
[2018-05-14 10:34] LABS: Candida DNA Not Detected (Not Detect); Gardnerella DNA Not Detected (Not Detect); Trichomonas DNA Not Detected (Not Detect)
[2018-05-14] MEDS: Ringers Solution, Lactated 1,000 ML IVC SCH ×2 (11:51→16:58)
[2018-05-14] MEDS ORDERED: Bupivacaine-MPF 0.25% 10 ML VIAL EP ONE (12:54)
[2018-05-14] MEDS ORDERED: *HR* FentaNYL (PF) 100 MCG/2 ML VIAL EP ONE (12:54)
--- NOTE | 2018-05-14 12:54 | Anesthesia Evaluation PreOp ---
Date of Encounter: 05/14/18 Time of Encounter: 12:53 - Past History Planned Operation: ROMEL Cardiac History: Denies any Significant Hx Pulmonary History: Denies Any Significant HX CONE WORKER History: Denies Any Significant HX Other Medical History: Denies Any Significant HX Anesthesia History: No Prior Anesthetic Complications (never had NA; denies personal and family h/o GA complications) : Yes Alcohol Use: none Drug use: none Medications and Allergies Metoclopramide [Reglan] 10 mg PO Q6HR 01/04/18 [History] Ranitidine HCl [Zantac 75] 150 mg PO DAILY 02/25/18 [History] Pnv95/Ferrous Fumarate/FA [ Vitamin Tablet] 1 tab PO DAILY 05/01/18 [Hi story] Zofran 05/01/18 [History] Allergy/AdvReac Type Severity Reaction Status Date / Time cefpodoxime [From Vantin] Allergy See Verified 05/01/18 14:09 Comments Cefprozil [From Cefzil] Allergy See Verified 05/01/18 14:09 Comments diphenhydramine Allergy Swelling Verified 12/09/17 13:48 [From Benadryl] of Lip/Tongue/Throat - Meds/Allergy Pre-op Review Medications Reviewed: Yes Allergies Reviewed: Yes Beta Blockers on Current Med List: No Anesthesia Results - Labs 05/14/18 09:40 Anesthesia Exam O2 Sat Height 1.73 m Height 1.73 m Weight 122.2 kg Weight 122.2 kg NPO (# of Hours): >8hrs Pain Scale: 5 Pain Scale Used: Angelita (Faces) - HEENT Pupil (Motor): Pupils equal Mallampati: II Teeth: Normal Oral Opening: Greater than 3 - CONE WORKER LOC: Oriented CONE WORKER Motor: Normal RUE, Normal LUE, Normal RLE, Normal LLE, Normal Face CONE WORKER Sensory: Normal: RUE, LUE, RLE, LLE, Face - Cardiac Rhythm: Regular Murmur: None JVD: No Carotid Bruit: No - Pulmonary Breath Sounds: bilateral Clear Respiratory Effort: Symmetrical Anesthesia Assess/Plan ASA Score: 3 (BMI > 40) Level of consciousness: Cooperative, Oriented, Restless Anesthetic Plan: Epidural Autologous Blood: No Monitoring Plan: Standard Monitors Recovery Plan: Other
[2018-05-14] MEDS ORDERED: Lidocaine -MPF 1% 5 ML AMPUL ONE (12:57)
[2018-05-14] MEDS ORDERED: Epidural Premix (fent/bupiv) 110 ML EP SCH (13:00)
--- NOTE | 2018-05-14 15:10 | Anesthesia Procedures ---
Addendum entered and electronically signed by Jose De La Cruz CRNA 05/14/18 22:27: Delivery Date: 05/14/2018 Delivery Time: 20:52 Original Note: Date of Encounter: 05/14/18 Time of Encounter: 14:45 Procedures: Anesthesia - Epidural/Spinal Patient ID/Chart reviewed: Yes Patient examined: Yes OB Eval: Gestational age: 38 weeks 4 days OB Eval: : 2 OB Eval: Hx Para: 0 OB Eval: Contractions: Non-stressed pattern Consent Obtained: Yes Supplemental Oxygen: None/Room Air Site Prep: Aseptic Technique, Sterile prep and drape, Povidone-Iodine 1% Patient position: upright Local Anesthetic: Lidocaine 1% Amount of Local Anesthetic used: 3 Touhy Needle Gauge: 18 Touhy Needle Depth (cm): 9 Catheter Depth at Skin (cm): 14 Test Dose (1.5% Lido + Epi): Volume given (mls): 5 Test Dose Result: Negative Loading Dose: 0.25% Marcaine (mls): 5 Loading Dose: Fentanyl (mcg): 100 Loading Dose Administered: Thru Catheter Infusion Med: 0.125% Bupivacaine w/ 2 mcg/ml Fentanyl Infusion Rate (mls/hr): 15 (w/ demand bolus of 6mL q30min PRN) Catheter Secured in Place: Tegaderm, Tape Interspace Used: L4-L5 Loss of Resistance (SNEHA): Yes Blood: No CSF: No Paresthesia: No Procedure: successful on 1st attempt; patient tolerated procedure well; VSS Vitals + FHT's: please see Rylee CANAS's electronic records for VS entry
[2018-05-14] MEDS: Oxytocin 20 units/ LR 1000 mL 20 UNIT/1,000 ML BAG IVC SCH ×2 (16:57→22:19)
--- NOTE | 2018-05-14 19:33 | OB Labor Progress Note ---
Date of Encounter: 05/14/18 Time of Encounter: 19:30 Labor Progress Note - Subjective Subjective: Patient resting in bed denies any pain. Deceleration noted on EFM tracing. - Cervix Cervix: 10/100/+1 - Heart Tones Heart Tones: 150 bpm moderate variability decel noted dropping down to 65 bpm Patient had Novii monitor on at this time and was replaced with external toco. FHR were in 100's at the time of switching monitors - [place]: 1.5-2 min apart - Interventions Interventions: Repositions, Pitocin off, SVE, Dr. He notified. - Plan Physician notified: Yes Physician notified details: DR. He to bedside. EFM back to baseline. Patient repositioned with peanut ball. Plan: Continue labor management Dr. He managing this OB patient
--- NOTE | 2018-05-14 21:26 | OB/GYN Procedure Note ---
Delivery - Delivery Date: 05/14/18 Provider: Felix He Intrapartum events: none Delivery induction: none Delivery augmentation: pitocin Delivery monitor: external FHT, external uterine Anesthesia: epidural Quantitated Blood Loss: 500 - (s) Infant A Delivery Time: 20:52 Presentation: vertex Position: OA Route of delivery: Gender: Female Viability: Viable Pounds: 7 Ounces: 11 at 1 minute: 7 at 5 mins: 8 Shoulder Dystocia: not encountered Specimens collected: cord blood Placenta: uterine exploration, partial extraction Cord: 3 umbilical vessels - Repair Episiotomy: none Laceration Description: Perineal - 2nd Degree - Complications Delivery complications: none - Disposition Mom disposition: stable in LDR disposition: stable in LDR - Comments Comments: Patient progressed to complete and pushing had a spontaneous vaginal delivery of a female infant over an intact perineum. 's head was in the perineum easily. The rest the infant was then delivered with 1 push. cried upon delivery. Weekly at first. Infant was massaged. His and then began crying and was passed to nursing in attendance. Cord bloods obtained. I continued to massage the uterus for some time to release the placenta. Placenta did not release. The placenta was delivered via manual extraction. Placenta was examin ed and found to be intact. There are no cervical vaginal periurethral lacerations noted. There was a second-degree perineal laceration repaired with 3-0 Vicryl suture in usual fashion. Patient delivered a female weight was 7 lbs. 11 oz. with Apgars of 7 at 1 minute and 8 at 5 minutes. Estimated blood loss 500 mL.
[2018-05-14] MEDS ORDERED: miSOPROStol 100 MCG TABLET RC STA (21:27)
[2018-05-14] MEDS ORDERED: Acetaminophen 325 MG TABLET PO ONE (22:01)
[2018-05-15] MEDS ORDERED: *HR* HYDROcodone/Acet 5/325 mg TABLET PO PRN (01:15)
[2018-05-15] MEDS ORDERED: Measles/Mumps/Rubella Vacc 0.5 ML VIAL SQ PRN (01:15)
[2018-05-15] MEDS ORDERED: Oxytocin 20 units/ LR 1000 mL 20 UNIT/1,000 ML BAG IVC SCH (01:15)
[2018-05-15] MEDS: Acetaminophen 325 MG TABLET PO PRN ×2 (01:57→20:35)
[2018-05-15] MEDS ORDERED: Benzocaine/Menthol 56 GM AEROSOL SPRAY TP PRN (03:29)
[2018-05-15 04:31] LABS: Basophils # 0.1 K/mcL (0.0-0.2); Basophils % 0.3 %; Eosinophils # 0.1 K/mcL (0.0-0.6); Eosinophils % 0.7 %; Hematocrit 26.5 % (35.3-44.9); Immature Granulocytes % 0.6 % (0-4); Lymphocytes # 2.7 K/mcL (0.6-4.6); Lymphocytes % 15.7 %; Mean Corpuscular HGB Conc 33.6 g/dL (31.6-35.5); Mean Corpuscular Hemoglobin 26.9 pg (28.0-33.3); Mean Corpuscular Volume 80.1 fL (83.0-100.0); Mean Platelet Volume 9.7 fL (9.4-12.4); Monocytes # 1.3 K/mcL (0.0-1.3); Monocytes % 7.5 %; Platelet Count 176 K/mcL (140-400); Red Blood Count 3.31 M/mcL (3.82-4.97); Red Cell Distribution Width 13.9 % (11.5-14.5); Segmented Neutrophils % 75.2 %
[2018-05-15 04:33] LABS: Hemoglobin 8.9 g/dL (11.5-15.4)
[2018-05-15] MEDS: Prenatal Vit/FA 1 EACH TABLET PO SCH (07:47)
[2018-05-15] MEDS: Ibuprofen 600 MG TABLET PO PRN ×2 (07:48→20:35)
[2018-05-15] MEDS: Famotidine 20 MG TABLET PO SCH (07:48)
--- NOTE | 2018-05-15 08:51 | OB/GYN Progress Note ---
Date of Encounter: 05/15/18 Time of Encounter: 08:49 - Assessment and Plan (1) Vaginal delivery Current Visit: Yes Status: Acute Pt meeting posptartum milestones. Continue to monitor and and assist with . Anticipate discharge home in am. (2) Breast feeding status of mother Current Visit: Yes Status: Acute consult today. (3) anemia Current Visit: Yes Status: Acute Continue iron supplementation Subjective - Subjective Patient reports: appetite normal, voiding normally, pain well controlled, ambulating normally [place]: doing well Objective - Latest Vital Signs Latest vital signs: Vital Signs Temp Pulse Pulse Resp BP Pulse Ox 05/15/18 03:45 98.0 F 83 83 16 122/76 05/15/18 01:45 99.0 F 106 18 109/75 05/15/18 01:02 98.0 F 118 16 111/72 05/14/18 23:30 99.1 F 116 14 130/87 96 Intake and Output 05/14/18 05/15/18 05/15/18 23:59 07:59 15:59 Intake Total 1999 0 / 0 Balance 1999 0 / 0 Intake: IV Fluids 1999 Pitocin 20 unit In 1,000 ml @ 1000 / 1000 Per Protocol IVC .Q0M BORIS Rx#: [id number] Lactated Ringers 1,000 ML @ 125 1000 / 1000 mls/hr IVC .Q8H BORIS Rx#: [id number] Oral 0 / 0 Other: # Voids 1 Weight 118.5 kg Patient Weight 05/15/18 23:59 Weight 118.5 kg - Exam Lungs: bilateral: normal Chest: Normal S1, Normal S2 Extremities: Present: normal Abdomen: Present: soft Uterus: Present: firm Uterus Position: 2 Fingers Below Umbilicus - Labs Labs: Laboratory Results - last 24 hr 05/14/18 05/14/18 05/14/18 09:08 09:20 09:40 WBC 13.3 H RBC 4.46 Hgb 11.9 Hct 35.5 MCV 79.6 L MCH 26.7 L MCHC 33.5 RDW 13.8 Plt Count 239 MPV 9.8 Immature Gran % 1.3 Seg Neutrophils % 66.0 Lymphocytes % 21.0 Monocytes % 8.3 Eosinophils % 2.9 Basophils % 0.5 Neutrophils # 8.8 Lymphocytes # 2.8 Monocytes # 1.1 Eosinophils # 0.4 Basophils # 0.1 Urine Opiates Screen Negative Ur Barbiturates Screen Negative Ur Phencyclidine Scrn Negative Ur Amphetamines Screen Negative U Benzodiazepines Scrn Negative Urine Cocaine Screen Negative U Marijuana (THC) Screen Negative Ur Drug Screen Interp See Below Cleo species DNA Not Detected Gardnerella DNA Probe Not Detected Trichomonas DNA Probe Not Detected 05/15/18 04:18 WBC 17.2 H RBC 3.31 L Hgb 8.9 L D Hct 26.5 L MCV 80.1 L MCH 26.9 L MCHC 33.6 RDW 13.9 Plt Count 176 MPV 9.7 Immature Gran % 0.6 Seg Neutrophils % 75.2 Lymphocytes % 15.7 Monocytes % 7.5 Eosinophils % 0.7 Basophils % 0.3 Neutrophils # 13.0 H Lymphocytes # 2.7 Monocytes # 1.3 Eosinophils # 0.1 Basophils # 0.1 Urine Opiates Screen Ur Barbiturates Screen Ur Phencyclidine Scrn Ur Amphetamines Screen U Benzodiazepines Scrn Urine Cocaine Screen U Marijuana (THC) Screen Ur Drug Screen Interp Cleo species DNA Gardnerella DNA Probe Trichomonas DNA Probe
[2018-05-16 08:04] VITALS: BP 127/84
--- NOTE | 2018-05-16 08:19 | Discharge Summary ---
Date of Encounter: 05/16/18 Time of Encounter: 08:17 - Discharge Diagnosis (1) Vaginal delivery Priority: Primary Status: Acute Comments: Pt reports feeling well this am. She desires discharge home today. (2) Breast feeding status of mother Priority: Secondary Status: Acute Comments: Pt has breastpump at home (3) anemia Priority: Secondary Status: Acute - Discharge Medications Prescriptions: Ibuprofen [Motrin] 600 mg PO Q6HR PRN #30 tablet PRN Reason: Cramping Docusate [Colace] 100 mg PO BID #60 capsule Ferrous Sulfate 325 mg PO DAILY #30 tablet Home Medications: Pnv95/Ferrous Fumarate/FA [ Vitamin Tablet] 1 tab PO DAILY 05/01/18 [History] Benzocaine/Menthol [place] [Dermoplast [place]] 1 appl TP QID PRN aerosol 05/16/18 [Rx] Docusate [Colace] 100 mg PO BID #60 capsule 05/16/18 [Rx] Ferrous Sulfate 325 mg PO DAILY #30 tablet 05/16/18 [Rx] Ibuprofen [Motrin] 600 mg PO Q6HR PRN #30 tablet 05/16/18 [Rx] Allergies/Adverse Reactions: Allergy/AdvReac Type Severity Reaction Status Date / Time cefpodoxime [From Vantin] Allergy See Verified 05/01/18 14:09 Comments Cefprozil [From Cefzil] Allergy See Verified 05/01/18 14:09 Comments diphenhydramine Allergy Swelling Verified 12/09/17 13:48 [From Benadryl] of Lip/Tongue/Throat Data Procedures and tests throughout hospitalization: Laboratory Tests 05/14/18 05/14/18 05/14/18 09:08 09:20 09:40 WBC 13.3 H RBC 4.46 Hgb 11.9 Hct 35.5 MCV 79.6 L MCH 26.7 L MCHC 33.5 RDW 13.8 Plt Count 239 MPV 9.8 Immature Gran % 1.3 Seg Neutrophils % 66.0 Lymphocytes % 21.0 Monocytes % 8.3 Eosinophils % 2.9 Basophils % 0.5 Neutrophils # 8.8 Lymphocytes # 2.8 Monocytes # 1.1 Eosinophils # 0.4 Basophils # 0.1 Urine Opiates Screen Negative Ur Barbiturates Screen Negative Ur Phencyclidine Scrn Negative Ur Amphetamines Screen Negative U Benzodiazepines Scrn Negative Urine Cocaine Screen Negative U Marijuana (THC) Screen Negative Ur Drug Screen Interp See Below Cleo species DNA Not Detected Gardnerella DNA Probe Not Detected Trichomonas DNA Probe Not Detected 05/15/18 04:18 WBC 17.2 H RBC 3.31 L Hgb 8.9 L D Hct 26.5 L MCV 80.1 L MCH 26.9 L MCHC 33.6 RDW 13.9 Plt Count 176 MPV 9.7 Immature Gran % 0.6 Seg Neutrophils % 75.2 Lymphocytes % 15.7 Monocytes % 7.5 Eosinophils % 0.7 Basophils % 0.3 Neutrophils # 13.0 H Lymphocytes # 2.7 Monocytes # 1.3 Eosinophils # 0.1 Basophils # 0.1 Urine Opiates Screen Ur Barbiturates Screen Ur Phencyclidine Scrn Ur Amphetamines Screen U Benzodiazepines Scrn Urine Cocaine Screen U Marijuana (THC) Screen Ur Drug Screen Interp Cleo species DNA Gardnerella DNA Probe Trichomonas DNA Probe Date of admission: 05/14/18 08:38 Primary care physician: Niranjan Trinidad MD Consults: 05/15/18 01:15 Consult to [facility] [CONS] Routine Comment: Vaginal delivery, consult needed 05/15/18 01:58 Consult to Insurance Agent (W&C) [CONS] Routine Reason For Exam: Reason for SW Consult: cutting jaimes noted to patient's right arm and FOB not involved in care of . Discharging clinician: Davina Alcaraz Anticipated date of discharge: 05/16/18 - Patient Status Disposition: Home, Self-Care Condition: Good Functional capacity at discharge: independent ambulation Overall status at discharge: patient is back to baseline - Discharge Instructions Follow Up With: Niranjan Trinidad MD [Primary Care Provider] - Denver Lindsey MD [Partnered Physician] - - Diet and Activity Activity: increase activity as tolerated Diet: regular diet Hospital Course Reason for admission: active labor Delivery: Episiotomy: none Laceration: 2nd degree Other procedures: none complications: none Discharge diagnosis: IUP at term delivered baby: female Hospital course: - Delivery Date: 05/14/18 Provider: Felix He Intrapartum events: none Delivery induction: none Delivery augmentation: pitocin Delivery monitor: external FHT, external uterine Anesthesia: epidural Quantitated Blood Loss: 500 - Infant (s) Infant A Delivery Time: 20:52 Presentation: vertex Position: OA Route of delivery: Gender: Female Viability: Viable Pounds: 7 Ounces: 11 at 1 minute: 7 at 5 mins: 8 Shoulder Dystocia: not encountered Specimens collected: cord blood Placenta: uterine exploration, partial extraction Cord: 3 umbilical vessels - Repair Episiotomy: none Laceration Description: Perineal - 2nd Degree - Complications Delivery complications: none - Disposition Mom disposition: home PPD2 Williams disposition: home with mother, Time Attestation: Total time spent providing and/or coordinating discharge services: Time Spent: Less than 30 minutes Exam - Constitutional Vitals: Temp Pulse Resp BP Pulse Ox 98.1 F 83 14 127/84 98 05/16/18 08:02 05/16/18 08:02 05/16/18 08:02 05/16/18 08:02 05/16/18 08:02 General appearance IM: A&O X 3 - Respiratory Respiratory exam: Present: CTAB - Cardiovascular Cardiovascular exam IM: Present: RRR, +S1, +S2 - GI/Abdominal GI/Abdominal exam IM: soft - Uterine Tone: Firm Uterus Position: 1 Finger Below Umbilicus - Extremities Exam Extremities exam IM: Present: pedal edema (mild bilaterally) - Neurological Exam Neurological exam: normal gait, oriented X3 - Psychiatric Additional comments: reports good mood, declines contraception until PPV
[2018-05-16] MEDS: Ibuprofen 600 MG TABLET PO PRN (09:24)
[2018-05-16] MEDS: Famotidine 20 MG TABLET PO SCH (09:25)
[2018-05-16] MEDS: Prenatal Vit/FA 1 EACH TABLET PO SCH (09:25)
== END 2018-05-16 11:33 | disposition home or self-care (01) | DRG 807 ==
LOC: 1NENULAB → OBSVTOIN 08:38 → 1NENULAB 09:05 → 1NENUOBS 05-15 00:32
PROVIDERS: ADMIT Advanced Practice Midwife; ATTEND Advanced Practice Midwife